=== PATIENT | male | born 1990 | race Caucasian/White ===

== ENCOUNTER 2022-10-17 17:47 | Emergency (ER) | payer MEDICAID ==
[2022-10-17] MEDS ORDERED: OLANZapine 10 MG Vial IM ONE (18:45)
[2022-10-17] MEDS ORDERED: LORazepam 2 MG/ML SDV IM ONE (19:40)
== END 2022-10-17 20:38 ==
LOC: JP.ED 17:47
DX: F11.23 Opioid dependence with withdrawal (principal); F17.200 Nicotine dependence, unspecified, uncomplicated
CPT/HCPCS: 96372; 99284; J2405